=== PATIENT | male | born 1995 | race Caucasian/White ===

== ENCOUNTER 2022-09-22 07:05 | Emergency (ER) | payer MEDICAID, OTHER ==
[~2022-09-22] VITALS: Ht 170.2 cm; Wt 117.9 kg
[~2022-09-22 07:05] MED LIST: RANI-655 PO; SUMA50TA PO
--- NOTE | 2022-09-22 07:11 | NUR ---
AUNDREA 89 FROM HOME FOR FLU LIKE SYMPTOMS SINCE YESTERDAY
--- NOTE | 2022-09-22 08:00 | NUR ---
rapid covid, covid pcr, and rapid influenza swabs collected and sent to lab
[2022-09-22 08:28] VITALS: BP 137/81
--- NOTE | 2022-09-22 08:28 | NUR ---
Patient discharged to home in stable condition. Written and verbal after care instructions given. Patient verbalizes understanding of instruction.
== END 2022-09-22 08:29 | disposition home or self-care (01) ==
LOC: ER 07:06
DX: J06.9 Acute upper respiratory infection, unspecified (principal); Z20.822 Contact with and (suspected) exposure to COVID-19; R00.0 Tachycardia, unspecified; F17.210 Nicotine dependence, cigarettes, uncomplicated
CPT/HCPCS: 99284; 71045; 87426; 87804; U0003; C9803

== ENCOUNTER 2022-10-23 22:52 | Emergency (ER) | payer MEDICAID ==
[~2022-10-23] VITALS: Ht 170.2 cm; Wt 113.4 kg
--- NOTE | 2022-10-23 23:05 | NUR ---
AUNDREA61 FROM HOME C/O PER PT "FEELING TIRED, BROKE UP WITH GIRLFRIEND TODAY I HAD A SEIZURE" PT A/OX4. TOLERATING R/A WELL WITH NO RESP DISTRESS. SAFETY SEZIURES PRECAUTIONS IN PLACE.
--- NOTE | 2022-10-23 23:33 | NUR ---
HIGH SCHOOL MUSIC DIRECTOR AT PT'S BEDSIDE
--- NOTE | 2022-10-23 23:35 | NUR ---
MENTAL HEALTH NURSE PRACTITIONER AT PT'S BEDSIDE
--- NOTE | 2022-10-23 23:40 | NUR ---
PT TAKEN TO CT VIA TEE
[2022-10-23 23:50] LABS: BASOPHILS # (AUTO) 0.1 K/uL (0.0-0.2); BASOPHILS % (AUTO) 0.7 % (0.0-2.0); EOSINOPHILS % (AUTO) 1.5 % (0.0-6.0); HEMATOCRIT 42 % (39-51); HEMOGLOBIN 14.4 g/dL (13.5-17.5); LYMPHOCYTES # (AUTO) 2.3 K/uL (0.8-4.8); LYMPHOCYTES % (AUTO) 27.4 % (20.0-44.0); MEAN CORPUSCULAR HGB CONC 34 g/dl (31.0-36.0); MEAN CORPUSCULAR VOLUME 88 fL (80-96); MONOCYTES # (AUTO) 0.8 K/uL (0.1-1.30); MONOCYTES % (AUTO) 9.1 % (2.0-12.0); NEUTROPHILS # (AUTO) 5.1 K/uL (1.8-8.9); NEUTROPHILS % (AUTO) 61.3 % (43.0-81.0); PLATELET COUNT (AUTO) 333 K/uL (150-450); WHITE BLOOD COUNT (AUTO) 8.4 K/uL (4.3-11.0)
--- NOTE | 2022-10-23 23:54 | NUR ---
PT RETURNED TO ER BED [address]
--- NOTE | 2022-10-24 00:05 | NUR ---
URINE SPECIMEN COLLECTED AND SENT TO LAB.
[2022-10-24 00:10] LABS: CALCIUM, SERUM 9.1 mg/dL (8.5-10.1); CARBON DIOXIDE 26 mmol/L (21-32); CHLORIDE 102 mmol/L (98-107); CREATININE 1.1 mg/dL (0.6-1.3); GLUCOSE 127 mg/dL (74-106); POTASSIUM 3.4 mmol/L (3.5-5.1); SODIUM SERUM 137 mmol/L (136-145); UREA NITROGEN, BLOOD 16 mg/dL (7-18)
[2022-10-24 00:15] LABS: ALANINE AMINOTRANSFERASE 71 U/L (12-78); ALBUMIN 3.8 g/dL (3.4-5.0); ALCOHOL, BLOOD < 3 mg/dL (0-0); ALKALINE PHOSPHATASE 103 U/L (46-116); ASPARTATE AMINOTRANSFERASE 37 U/L (15-37); BILIRUBIN,DIRECT 0.1 mg/dL (0.0-0.2); BILIRUBIN,TOTAL 0.2 mg/dL (0.2-1.0); TOTAL PROTEIN, SERUM 7.4 g/dL (6.4-8.2)
[2022-10-24 00:41] LABS: BILIRUBIN,URINE NEGATIVE (NEGATIVE); COLOR,URINE YELLOW (YELLOW); LEUKOCYTE ESTERASE ,URINE NEGATIVE (NEGATIVE); NITRITE, URINE NEGATIVE (NEGATIVE); PROTEIN,URINE NEGATIVE (NEGATIVE); UGLUCOSE NEGATIVE (NEGATIVE); UROBILINOGEN,URINE 0.2 EU/dL (0.2)
--- NOTE | 2022-10-24 00:45 | NUR ---
Patient discharged to home in stable condition. Written and verbal after care instructions given. Patient verbalizes understanding of instruction. pt ambulatory with a steady gait
[2022-10-24 01:38] VITALS: BP 131/84
== END 2022-10-24 01:02 | disposition home or self-care (01) ==
LOC: ER 22:54
DX: R56.9 Unspecified convulsions (principal); G43.909 Migraine, unspecified, not intractable, without status migrainosus; Z79.899 Other long term (current) drug therapy
CPT/HCPCS: 36415; 70450-TC; 71045-TC; 80048-TC; 80076-TC; 82962-TC; 85025-TC; 85730-TC; G0480

== ENCOUNTER 2025-03-21 23:16 | Emergency (ER) | payer MEDICAID ==
[~2025-03-21] VITALS: Ht 172.7 cm; Wt 122.5 kg
[2025-03-22 01:50] VITALS: BP 128/80; TEMP 98; O2SAT 99
== END 2025-03-22 01:51 | disposition home or self-care (01) ==
LOC: ER 23:33
DX: R09.82 Postnasal drip (principal); R05.9 Cough, unspecified; Z87.19 Personal history of other diseases of the digestive system; Z79.899 Other long term (current) drug therapy